=== PATIENT | male | born 1995 | race Caucasian/White ===

== ENCOUNTER 2016-04-03 18:28 | Emergency (ER) | payer OTHER ==
[~2016-04-03 18:28] MED LIST: DOXY100C2 PO
[2016-04-03 18:30] VITALS: TEMP 37
[2016-04-03] MEDS ORDERED: DOCUSATE SODIUM 100 MG/10 ML UDC PO STA (18:49)
[2016-04-03] MEDS ORDERED: DOCUSATE SODIUM 100 MG CAP ONE (18:52)
--- NOTE | 2016-04-03 19:07 | EMERGENCY ROOM VISIT NOTE ---
ED Visit Note First contact with patient: 18:36 CHIEF COMPLAINT: Clogged left ear HISTORY OF PRESENT ILLNESS: This 20-year-old male patient presents to the emergency department complaining of difficulty hearing out of his left ear. He states that he attempted to clean his ear with a Q-tip 20 minutes ago after getting out of the shower and believes that he pushed ear wax into the ear. He states that he attempted to use a Q-tip to get the wax out, but thinks that he pushed it further into the ear. He reports difficulty hearing out of his left ear at this time. He does report there was some blood on the Q-tip, which prompted him to come here. REVIEW OF SYSTEMS: A review of systems was performed with positives and pertinent negatives listed in the history of present illness. All other systems were reviewed and are negative. ALLERGIES: No known drug allergies MEDICATIONS: No chronic medications PMH: No significant past medical history. SOCIAL HISTORY: The patient lives locally with family. PHYSICAL EXAM: VITALS: Vitals are noted on the nurse's note and reviewed by myself. Vital signs stable. GENERAL: This is a 20-year-old male, in no acute distress, nondiaphoretic, well- developed well-nourished. HEENT: PERRLA, EOMs intact. There is a cerumen impaction left ear. There is an abrasion of the ear canal with a minimal amount of blood. There is a moderate amount of cerumen within the right external auditory canal. EMERGENCY DEPARTMENT COURSE: The patient was evaluated as above. Colace syrup was placed in the patient's left ear and the ear was irrigated. On repeat exam , the patient no longer had any cerumen impaction. A curette was used to remove a large piece of cerumen from the ear canal. The patient reported full relief of symptoms. He was given Debrox drops to use in the future for cerumen. He was instructed not to use Q-tips in the ear. He verbalized understanding was discharged home in good condition. DIAGNOSIS: Cerumen impaction Current/Historical Medications No Active Prescriptions or Reported Meds Allergies Coded Allergies: No Known Allergies (Unverified , 04/03/16) Vital Signs Date Time Temp Pulse Resp B/P Pulse Ox O2 Delivery O2 Flow Rate FiO2 04/03/16 18:30 37.0 101 17 153/96 98 Room Air Medications Administered Medications (Trade) Dose Ordered Sig/[place] Route Start Time Stop Time Status Last Admin Dose Admin Docusate Sodium (coLACE SYRUP) 100 mg NOW STAT PO 04/03/16 18:49 04/03/16 18:51 DC 04/03/16 18:49 100 MG Departure Information Impression Primary Impression: Cerumen impaction Dispostion Home / Self-Care Condition GOOD Prescriptions Carbamide Peroxide (Otic) (DEBROX) 6.5 % Amber 5 DROPS OT HS, #15 ML Prov: Tory Gomez ., PAShemar 04/03/16 Referrals Binh Johnson M.D. (MEDICAL) (PCP) Patient Instructions My [facility] Additional Instructions Do NOT use Qtips in the ears. Use the Debrox drops in the ears at night as needed for wax buildup. Problem Qualifiers Primary Impression: Cerumen impaction Laterality: left Qualified Codes: H61.22 - Impacted cerumen, left ear
[2016-04-03] MEDS ORDERED: CARB1SOL8 OT (19:55)
[2016-04-03 20:02] VITALS: BP 149/97; PULSE 77; O2SAT 100
== END 2016-04-03 20:03 | disposition home or self-care (01) ==
LOC: C.EDB 18:29 → C.EDD 20:03
DX: H61.22 Impacted cerumen, left ear (principal)

== ENCOUNTER → 2016-05-13 | Outpatient (CLI) | payer OTHER ==
[~2016-05-13] MED LIST changes: +CARB1SOL8 OT; -DOXY100C2 PO
== END | disposition home or self-care (01) ==
LOC: C.OPB 21:23
DX: Z02.83 Encounter for blood-alcohol and blood-drug test (principal)